=== PATIENT | male | born 1985 | race Caucasian/White ===

== ENCOUNTER 2025-03-30 05:54 | Emergency (ER) | payer OTHER ==
[~2025-03-30] VITALS: Ht 182.9 cm; Wt 104.5 kg
[2025-03-30 06:07] VITALS: BP 123/74; PULSE 101; RESP 20; TEMP 98.1; O2SAT 97
== END 2025-03-30 07:07 | disposition home or self-care (01) ==
LOC: EMS 05:59
DX: S00.81XA Abrasion of other part of head, initial encounter (principal); Z02.89 Encounter for other administrative examinations; V89.2XXA Person injured in unspecified motor-vehicle accident, traffic, initial encounter; Y93.89 Activity, other specified; Y92.89 Other specified places as the place of occurrence of the external cause; Y99.8 Other external cause status
CPT/HCPCS: 99283; Z7502